=== PATIENT | male | born 1985 | race Caucasian/White ===

== ENCOUNTER 2020-07-17 19:31 | Emergency (ER) | payer OTHER ==
[~2020-07-17] VITALS: Ht 177.8 cm; Wt 106.1 kg
[2020-07-17 19:53] LABS: ABSOLUTE BASOPHILS 0.1 thou/uL (0.0-0.2); ABSOLUTE EOSINOPHILS 0.3 thou/uL (0.0-0.7); ABSOLUTE LYMPHOCYTES 1.8 thou/uL (0.8-5.3); ABSOLUTE MONOCYTES 0.6 thou/uL (0.0-1.2); ABSOLUTE NEUTROPHILS 6.6 thou/uL (1.6-8.1); BASOPHILS 0.9 %; EOSINOPHILS 2.7 %; HEMATOCRIT 42.2 % (42.0-52.0); HEMOGLOBIN 14.5 gm/dL (14.0-18.0); LYMPHOCYTES 18.8 %; MCH 27.7 pg (26.0-34.0); MCHC 34.4 g/dL (28.0-37.0); MCV 80.5 fL (80.0-100.0); MONOCYTES 6.7 %; MPV 8.3 fl. (7.2-11.1); NUCLEATED RBCS 0 /100WBC; PLATELET COUNT* 249 thou/uL (150-400); POLYS 70.9 %; RBC 5.24 mil/uL (4.50-6.00); WBC 9.3 thou/uL (4.0-11.0)
[2020-07-17 20:00] LABS: CALCIUM 8.7 mg/dL (8.5-10.1); CREATININE 1.1 mg/dL (0.6-1.3); POTASSIUM 4.9 mmol/L (3.5-5.1)
[2020-07-17] MEDS ORDERED: FLEXERIL PO (21:22)
[2020-07-17] MEDS ORDERED: HYDROCODON-ACE1 EAC8 PO (21:22)
[2020-07-17 21:44] VITALS: BP 127/79
== END 2020-07-17 21:47 | disposition home or self-care (01) ==
LOC: M.ERS 19:31
PROVIDERS: Emergency Medicine
DX: M62.830 Muscle spasm of back (principal); M25.511 Pain in right shoulder; V43.52XA Car driver injured in collision with other type car in traffic accident, initial encounter; Y93.89 Activity, other specified; Y92.89 Other specified places as the place of occurrence of the external cause; Y99.8 Other external cause status